=== PATIENT | female | born 1980 | race Caucasian/White ===

== ENCOUNTER 2016-07-01 21:22 | Emergency (ER) | payer BC ==
[~2016-07-01] VITALS: Ht 160 cm; Wt 93.0 kg
[2016-07-01] MEDS ORDERED: Peridex 473 ML473 ML PO (21:52)
[2016-07-01] MEDS ORDERED: LIDOCAINE HCL100 M1 MM (21:52)
[2016-07-01] MEDS ORDERED: PENICILLIN VK500 MG PO (21:52)
[2016-07-01] MEDS ORDERED: NAPROSYN500 MG PO (21:52)
== END 2016-07-01 22:27 | disposition home or self-care (01) ==
LOC: ED 21:22
DX: K02.9 Dental caries, unspecified (principal); R03.0 Elevated blood-pressure reading, without diagnosis of hypertension